=== PATIENT | female | born 1995 ===

== ENCOUNTER 2025-08-01 17:28 | Outpatient (REF) | payer SELFPAY ==
--- NOTE | 2025-08-01 16:45 | PAPFT_PTH ---
PATIENT: Kenna Plaza LOC: [facility] U#:[id number] AGE/SX: 29/F ROOM: RE08/01/[address]: Lili Jones : 1995 BED: DIS: 08/01/2025 SPEC #: [id number] RECD: 08/01/25 18:30 STATUS: ZHENG REQ #: [id number] MIKE: 08/01/25 16:[address]: Lili Jones DEPT: [facility] Cytology RECD BY: Oralia Neff ENTERED: 08/01/25 18:30 SP TYPE: PAPFT OTHR DR: Unknown,Unknown Tissues: 1 - CX/ENDOCX FOR PAP SMEARS Procedures: PAP THIN PREP/[facility] Screening Comments: [id number]
== END 2025-08-01 17:29 | disposition home or self-care (01) ==
LOC: NCHCN 17:28
PROVIDERS: Visit Provider Nurse Practitioner Family
DX: Z12.4 Encounter for screening for malignant neoplasm of cervix (principal)
CPT/HCPCS: 88142